=== PATIENT | female | born 1960 | race Caucasian/White ===

== ENCOUNTER 2019-02-14 08:46 | Outpatient (CLI) | payer OTHER | END 2019-02-14 23:59 | disposition home or self-care (01) | LOC: CFH 08:46 | PROVIDERS: ATTEND Internal Medicine | DX: Z12.31 Encounter for screening mammogram for malignant neoplasm of breast (principal) | CPT/HCPCS: 77063; 77067 ==

== ENCOUNTER 2019-10-15 06:49 | Emergency (ER) | payer OTHER ==
[~2019-10-15] VITALS: Ht 147.3 cm; Wt 56.6 kg
[~2019-10-15 06:49] MED LIST: LISI-170 PO; METF500T17 PO
[2019-10-15 06:54] VITALS: BP 128/72
--- NOTE | 2019-10-15 07:05 | NUR ---
PT TO ED FOR LBP THAT GOES INTO LEFT LEG AND INHIBITS AMBULATION STARTING OVER 1 MONTH AGO. PT STATES WAS SEEN AT ON 10/07 FOR SAME AND WAS TOLD SHE HAS "STENOSIS WITH SPURS" AND WAS TOLD SHE NEEDS AN MRI. PT SAID SHE CALLED AND THEY AREN'T DOING MRIs RIGHT NOW. PT PRESENT TO ED TODAY BECAUSE SHE "CAN'T HARDLY WALK." PT CALMA ND COOPERATIVE. NO NEEDS EXPRESSED. MARYSOL CARTY TO BS FOR ASSESSMENT. AWAITING ORDERS.
[2019-10-15] MEDS ORDERED: HYDR25TA6 PO (07:14)
[2019-10-15] MEDS ORDERED: AMLO10TA8 PO (07:14)
[2019-10-15] MEDS ORDERED: LOSA50TA14 PO (07:14)
[2019-10-15] MEDS ORDERED: LEVO75TA5 PO (07:14)
[2019-10-15] MEDS ORDERED: SITA50TA PO (07:14)
[2019-10-15] MEDS ORDERED: ASPI-496 PO (07:14)
[2019-10-15] MEDS ORDERED: KETOROLAC 30 MG/1 ML ONE (07:26)
[2019-10-15] MEDS ORDERED: KETOROLAC 30 MG/1 ML IM ONE (07:30)
--- NOTE | 2019-10-15 08:48 | NUR ---
Patient given discharge instructions and they have confirmed that they understand the instructions. Patient ambulatory with steady gait. Pt left with d/c paperwork and all personal belongings.
== END 2019-10-15 09:02 | disposition home or self-care (01) ==
LOC: ED 07:18
DX: M54.42 Lumbago with sciatica, left side (principal); I10 Essential (primary) hypertension; E03.9 Hypothyroidism, unspecified
CPT/HCPCS: 96372; 99283; J1885

== ENCOUNTER 2019-10-17 13:09 | Outpatient (CLI) | payer OTHER ==
[~2019-10-17 13:09] MED LIST changes: +AMLO10TA8 PO; +ASPI-496 PO; +HYDR25TA6 PO; +LEVO75TA5 PO; +LOSA50TA14 PO; +SITA50TA PO
== END 2019-10-17 23:59 | disposition home or self-care (01) ==
LOC: RAD 13:09
PROVIDERS: ATTEND Internal Medicine
DX: M51.36 Other intervertebral disc degeneration, lumbar region (principal); M54.10 Radiculopathy, site unspecified
CPT/HCPCS: 72148

== ENCOUNTER 2019-12-11 11:52 | Outpatient (CLI) | payer OTHER ==
[2019-12-11] MEDS ORDERED: FAMO20TA7 PO (12:31)
[2019-12-11] MEDS ORDERED: GABA600T7 PO (12:31)
[2019-12-11] MEDS ORDERED: SITA1TAB5 PO (12:31)
[2019-12-11] MEDS ORDERED: ACET-76 PO (12:31)
[2019-12-11] MEDS ORDERED: ATOR20TA37 PO (12:31)
[2019-12-11] MEDS ORDERED: NAPR-685 PO (12:31)
[2019-12-11 13:03] LABS: BASOPHILS # (AUTO) 0.05 x10^3/uL (0-0.1); BASOPHILS % (AUTO) 1 % (0-1); EOSINOPHILS # (AUTO) 0.28 x10^3/uL (0-0.4); EOSINOPHILS % (AUTO) 3 % (1-7); LYMPHOCYTES # (AUTO) 2.13 x10^3/uL (1-3.4); LYMPHOCYTES % (AUTO) 23 % (22-44); MD NO; MEAN CORPUSCULAR HEMOGLOBIN 28.7 pg (27.0-34.8); MEAN CORPUSCULAR HGB CONC 32.7 g/dL (32.4-35.8); MEAN CORPUSCULAR VOLUME 87.7 fL (80-100); MEAN PLATELET VOLUME 8.5 fL (7.4-10.4); MONOCYTES # (AUTO) 0.73 x10^3/uL (0.2-0.8); MONOCYTES % (AUTO) 8 % (2-9); NEUTROPHILS # (AUTO) 6.01 x10^3/uL (1.8-6.8); NEUTROPHILS % (AUTO) 65 % (42-75); PLATELET COUNT 315 x10^3/uL (130-400); RED BLOOD COUNT 4.54 x10^6/uL (3.82-5.3); RED CELL DISTRIBUTION WIDTH 17.8 % (9.6-15.2)
[2019-12-11 13:15] LABS: INTERNATIONAL NORMALIZED RATIO 0.92 (0.93-1.1); PROTHROMBIN TIME 9.7 Seconds (9.6-11.5)
[2019-12-11 13:16] LABS: MICROSCOPIC AUTO
[2019-12-11 13:17] LABS: CHLORIDE 104 mmol/L (98-107)
[2019-12-11 13:24] LABS: ALANINE AMINOTRANSFERASE 27 U/L (12-78); ALBUMIN 4.5 g/dL (3.4-5.0); ALKALINE PHOSPHATASE 65 U/L (45-117); ANION GAP 10 mmol/L (5-15); BILIRUBIN,TOTAL 0.4 mg/dL (0.2-1.0); CALCIUM 9.5 mg/dL (8.5-10.1); CREATININE 1.04 mg/dL (0.55-1.02); TOTAL PROTEIN 8.4 g/dL (6.4-8.2)
== END 2019-12-11 23:59 | disposition home or self-care (01) ==
LOC: STAR 11:52
PROVIDERS: ATTEND Neurological Surgery
DX: Z01.818 Encounter for other preprocedural examination (principal); Z01.811 Encounter for preprocedural respiratory examination; Z01.812 Encounter for preprocedural laboratory examination; I10 Essential (primary) hypertension; E11.9 Type 2 diabetes mellitus without complications; M51.26 Other intervertebral disc displacement, lumbar region; M54.16 Radiculopathy, lumbar region; R79.1 Abnormal coagulation profile; R94.31 Abnormal electrocardiogram [ECG] [EKG]; R82.90 Unspecified abnormal findings in urine
CPT/HCPCS: 36415; 71046; 80053; 81001; 85025; 85610; 85730; 87086; 93005; U0001-CS

== ENCOUNTER 2019-12-18 05:31 | Day surgery (SDC) | payer OTHER ==
[~2019-12-18] VITALS: Ht 147.3 cm; Wt 62.0 kg
[~2019-12-18 05:31] MED LIST changes: +ACET-76 PO; +ATOR20TA37 PO; +FAMO20TA7 PO; +GABA600T7 PO; +NAPR-685 PO; +SITA1TAB5 PO
[2019-12-18] MEDS ORDERED: LACTATED RINGERS 1,000 ML IV SCH (06:07)
[2019-12-18 06:14] VITALS: BP 158/97
[2019-12-18] MEDS ORDERED: VANCOMYCIN 1,000 MG ONE (06:22)
[2019-12-18] MEDS ORDERED: BUPIVACAINE/PF-EPI 0.5% 1:200K ONE (06:22)
[2019-12-18] MEDS ORDERED: BACITRACIN 50,000 UNIT ONE (06:23)
[2019-12-18] MEDS ORDERED: CHLORHEXIDINE 15 ML UDC MM ONE (06:30)
[2019-12-18] MEDS ORDERED: FENTANYL PF 250 MCG/5ML ONE (06:47)
[2019-12-18] MEDS ORDERED: MIDAZOLAM 1 MG/ML, 2ML ONE (06:47)
[2019-12-18] MEDS ORDERED: EPINEPHRINE 1 MG/ML, 1ML ONE (06:59)
[2019-12-18] MEDS ORDERED: GLYCOPYRROLATE 0.2MG/1ML, 5ML ONE (06:59)
[2019-12-18] MEDS ORDERED: NEOSTIGMINE 1 MG/ML, 10ML ONE (06:59)
[2019-12-18] MEDS ORDERED: CEFAZOLIN 1,000 MG ONE (06:59)
[2019-12-18] MEDS ORDERED: ROCURONIUM 10 MG/ML,10ML ONE (06:59)
[2019-12-18] MEDS ORDERED: DEXAMETHASONE 4 MG/ML, 1ML ONE (06:59)
[2019-12-18] MEDS ORDERED: PROPOFOL 10 MG/ML, 20ML ONE (06:59)
[2019-12-18] MEDS ORDERED: ONDANSETRON 2MG/ML, 2ML ONE (06:59)
[2019-12-18] MEDS ORDERED: ACETAMINOPHEN 500 MG TABLET PO ONE (07:00)
[2019-12-18] MEDS ORDERED: OXYcodone IR 5MG TABLET PO ONE (07:00)
[2019-12-18] MEDS ORDERED: MEPERIDINE/PF 25MG/0.5ML IVPush PRN (07:30)
[2019-12-18] MEDS ORDERED: FENTANYL PF 100 MCG/2ML IV PRN (07:30)
[2019-12-18] MEDS ORDERED: ONDANSETRON 2MG/ML, 2ML IVPush PRN (07:30)
[2019-12-18] MEDS ORDERED: OXYcodone 5 MG/5 ML ORAL.SOL UDC PO PRN (07:30)
[2019-12-18] MEDS ORDERED: HYDROmorphone 1 MG/ML, 1ML INJ IVPush PRN (07:30)
[2019-12-18] MEDS ORDERED: METHOCARBAMOL 1,000 MG in DEXTROSE 5% 100 ML IV PRN (08:30)
== END 2019-12-18 11:15 | disposition home or self-care (01) ==
LOC: OUT 05:31
PROVIDERS: ATTEND Neurological Surgery
DX: M51.16 Intervertebral disc disorders with radiculopathy, lumbar region (principal); M48.061 Spinal stenosis, lumbar region without neurogenic claudication; I10 Essential (primary) hypertension; E78.5 Hyperlipidemia, unspecified; E03.9 Hypothyroidism, unspecified; E11.9 Type 2 diabetes mellitus without complications; Z79.899 Other long term (current) drug therapy; Z87.891 Personal history of nicotine dependence
CPT/HCPCS: 63030; 72100; 82962; 93005; J0171; J0690; J1100; J2250; J2405; J2704; J2710; J3010; J3370; J7120

== ENCOUNTER → 2020-10-16 | Outpatient (CLI) | payer OTHER ==
[~2020-10-16] MED LIST changes: +AMLO-211 PO; -AMLO10TA8 PO
== END | disposition home or self-care (01) ==
LOC: CFH 15:49
PROVIDERS: ATTEND Emergency Medicine
DX: M79.605 Pain in left leg (principal)

== ENCOUNTER 2020-10-22 07:29 | Emergency (ER) | payer OTHER ==
[~2020-10-22] VITALS: Ht 147.3 cm; Wt 65.3 kg
--- NOTE | 2020-10-22 07:45 | NUR ---
PT AMBULATED TO ROOM FROM TRIAGE. NADN/VSS. PT SITTING ON GURNEY CALMLY. NO NEEDS AT THIS TIME
[2020-10-22] MEDS ORDERED: KETOROLAC 30 MG/1 ML ONE (07:55)
[2020-10-22] MEDS ORDERED: CYCLOBENZAPRINE 10 MG TABLET ONE (07:55)
[2020-10-22] MEDS ORDERED: ACETAMINOPHEN 500 MG TABLET ONE (07:55)
[2020-10-22] MEDS ORDERED: CYCLOBENZAPRINE 10 MG TABLET PO ONE (08:00)
[2020-10-22] MEDS ORDERED: ACETAMINOPHEN 500 MG TABLET PO ONE (08:00)
[2020-10-22] MEDS ORDERED: KETOROLAC 30 MG/1 ML IM ONE (08:00)
[2020-10-22 08:26] VITALS: BP 105/51
--- NOTE | 2020-10-22 08:27 | NUR ---
Clyde castillo in [facility] - 10/22/20 at 0829 by [email or web address] Patient given discharge instructions and they have confirmed that they understand the instructions. Patient ambulatory with steady gait.
--- NOTE | 2020-10-22 08:35 | NUR ---
Patient given discharge instructions and they have confirmed that they understand the instructions. Patient ambulatory with steady gait.
== END 2020-10-22 08:39 | disposition home or self-care (01) ==
LOC: ED 08:38
DX: M54.42 Lumbago with sciatica, left side (principal); M79.604 Pain in right leg; E11.9 Type 2 diabetes mellitus without complications; E03.9 Hypothyroidism, unspecified; I10 Essential (primary) hypertension; Z79.899 Other long term (current) drug therapy
CPT/HCPCS: 96372; 99283; J1885

== ENCOUNTER 2021-02-25 01:22 | Emergency (ER) | payer OTHER ==
[~2021-02-25] VITALS: Ht 147.3 cm; Wt 64.3 kg
--- NOTE | 2021-02-25 01:29 | NUR ---
assessment made. chart up for MD to see.
--- NOTE | 2021-02-25 01:44 | NUR ---
PA at bedside.
--- NOTE | 2021-02-25 02:04 | NUR ---
X ray at bedside.
--- NOTE | 2021-02-25 02:24 | NUR ---
BEDSIDE REPORT RECEIVED FROM BRENDA ESCAMILLA
--- NOTE | 2021-02-25 02:37 | NUR ---
re-evaluation done. patient discharged with prescription and instruction. verbalized understanding.
[2021-02-25 02:38] VITALS: BP 147/73
== END 2021-02-25 02:39 | disposition home or self-care (01) ==
LOC: ED 02:01
DX: J06.9 Acute upper respiratory infection, unspecified (principal); Z20.822 Contact with and (suspected) exposure to COVID-19; I10 Essential (primary) hypertension; E11.9 Type 2 diabetes mellitus without complications; E03.9 Hypothyroidism, unspecified; Z87.891 Personal history of nicotine dependence
CPT/HCPCS: 71045; 99284; U0003; U0005